=== PATIENT | female | born 1940 | race Caucasian/White ===

== ENCOUNTER → 2025-01-12 13:28 | Outpatient (REF) | payer MEDICARE, OTHER, SELFPAY | LOC: HWRCS 13:28 | PROVIDERS: ATTENDING PHYSICIAN Internal Medicine Cardiovascular Disease; FAMILY PHYSICIAN Internal Medicine | DX: R01.1 Cardiac murmur, unspecified (principal); R42 Dizziness and giddiness; R06.09 Other forms of dyspnea | CPT/HCPCS: 93306 ==